=== PATIENT | male | born 1975 | race Caucasian/White ===

== ENCOUNTER 2024-12-18 09:58 | Emergency (ER) | payer MEDICAID ==
[~2024-12-18] VITALS: Ht 175.3 cm; Wt 100.0 kg
[2024-12-18 10:10] VITALS: O2SAT 100
[2024-12-18 10:22] VITALS: BP 135/99; PULSE 85; RESP 17; TEMP 36.7; O2SAT 100
== END 2024-12-18 10:25 | disposition home or self-care (01) ==
LOC: ER 09:58
DX: S01.111D Laceration without foreign body of right eyelid and periocular area, subsequent encounter (principal); X58.XXXD Exposure to other specified factors, subsequent encounter
CPT/HCPCS: 99282; Z7610 ×2